=== PATIENT | male | born 2000 | race Caucasian/White ===

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

== ENCOUNTER 2022-09-06 11:41 | Emergency (ER) | payer OTHER ==
[~2022-09-06] VITALS: Ht 182.9 cm; Wt 63.6 kg
[2022-09-06 12:55] LABS: RSV AMPLIFICATION POSITIVE (NEGATIVE)
[2022-09-06] MEDS ORDERED: BENZ200C70 PO (15:12)
[2022-09-06] MEDS ORDERED: VENTAER INH (15:12)
[2022-09-06] MEDS ORDERED: MUCI600T31 PO (15:12)
[2022-09-06 15:51] VITALS: BP 110/72
== END 2022-09-06 15:55 | disposition home or self-care (01) ==
LOC: M ED 11:41
DX: J20.5 Acute bronchitis due to respiratory syncytial virus (principal); Z20.89 Contact with and (suspected) exposure to other communicable diseases; F17.200 Nicotine dependence, unspecified, uncomplicated; F12.10 Cannabis abuse, uncomplicated